=== PATIENT | female | born 1945 | race Caucasian/White ===

== ENCOUNTER 2018-10-19 07:04 | Inpatient (IN) | payer BC, MEDICARE ==
[2018-10-16 18:30] VITALS: BMI 26.2
[2018-10-19] VITALS (25 sets, daily range): BP systolic 96–141; BP diastolic 53–66; PULSE 60–83; RESP 14–31; Ht 157.5 cm; Wt 62.2 kg
[~2018-10-19] VITALS: Ht 157.5 cm; Wt 62.2 kg
--- NOTE | 2018-10-19 05:53 | HPN ---
Date/Time of Note Date/Time of Note DATE: 10/19/18 TIME: 05:53 Interval H&P Admission Note Pt. seen H&P reviewed: No system changes MAXIMINO FIGUEROA MD Oct 19, 2018 05:53
--- NOTE | 2018-10-19 05:57 | OPR ---
Date/Time of Note Date/Time of Note DATE: 10/19/18 TIME: 05:54 Operative Report Procedure Date: Oct 19, 2018 Preoperative Diagnosis Failed right total shoulder replacement Postoperative Diagnosis 1. Failed right total shoulder replacement 2. Right shoulder acromioclavicular joint arthritis 3. Massive, unrepairable rotator cuff tear Operation/Procedure Performed 1. Revision of right total shoulder to reverse total shoulder replacement 2. Right open distal clavicular excision 3. Right shoulder injection of PRP solution Surgeon see signature line Production Consultant Cheko Lundberg PA-C Anesthesia Type: general Estimated Blood Loss: 100 - 150 ml's Transfusion none Specimen None Grafts/Implants See operative note Complications none Pt Condition Post Procedure: stable Disposition: PACU Procedure Description OUTSIDE CONTRACTOR SALES SURGEON: Cheko Lundberg PA-C was asked to be present for this case at my request. Assistance was necessary as a result of the highly technical nature of this operation. When performing an open total shoulder replacement, it is critical to have a trained insurance administrative assistant who is an expert in handling the extremity and assisting the surgeon in tasks such as manipulation of the arm, protection of the neurovascular structures and positioning the implants. This assistance cannot be performed by a tractor trailer technician, as it is considered an integral part of the procedure and the insurance administrative assistant should be compensated for his time. PROCEDURE IN DETAIL: Following the administration of general anesthesia supplemented with a peripheral nerve block for postoperative pain control, the patient was examined under anesthesia. Examination of the right shoulder revealed that the humeral head was sitting posteriorly dislocated. There was moderate to severe crepitus with motion. The right forearm was prepped and 60 cc of blood were drawn using a 60 cc syringe coated with anticoagulant. The blood was harvested from the patient and given to the promotional representative who prepared PRP concentrate. The patient was then placed in the beach chair position. Sterile prep and drape was then undertaken. An extended deltopectoral incision was then created. The superior surface was then identified and the acromioclavicular joint was noted to have very significant palpable osteophytes. Capsulotomy was then made in a medial lateral direction exposing the distal clavicle. Severe arthritic changes were noted. The clavicle was then skeletonized for a distance of 10 mm and an osteotome was used to resect the lateral 10 mm. A good decompression of the AC joint was confirmed. The AC joint capsule was then closed using interrupted #2 sutures with a watertight closure. The deltopectoral interval was then exposed and the conjoined tendon was identified and retracted medially. The humeral component was then noted to be in the subdeltoid plane the subdeltoid plane was then elevated. Severe synovitis was noted with the humeral head being superiorly and posteriorly displaced. The humeral component was then removed with osteotomes and mallet. The canal was intact distally. The tuberosities were slightly comminuted. The glenoid component was seen to be completely displaced and this was removed atraumatically. There was a central cavitary defect in the glenoid and this was prepared with bony putty in order to augment the area. The central canal of the glenoid was then entered and prepared for a Trampolineuy baseplate with a 20 mm peg was then fashioned. The baseplate was then applied with four peripheral screws and solid fixation. A 38 mm glenosphere, with 4 mm offset was then applied, with solid fixation. The humerus was then reamed and prepared for a 12 mm humeral component with a standard metaphyseal component. The joint was irrigated and the medullary canal infiltrated with the PRP solution that was prepared previously. The actual components were implanted with solid fixation with a 3 mm liner. The arm was taken through full range of motion with no evident instability. The joint was then thoroughly irrigated, the deep tissues were approximated u sing #1 suture followed by closure of the deep layer using 2-0 Monocryl. The skin was closed using 4-0 Monocryl suture, and a Prenio dressing. An Ultrasling was then applied. The patient was awakened and transported to the recovery room in stable conditi on. Estimated blood loss for this procedure was 150 cc. Radiographs will be obtained in the recovery room. MAXIMINO FIGUEROA MD Oct 19, 2018 05:57
[~2018-10-19 07:04] MED LIST: BUPIVACAINE 0.5% (SDV) 30 ML, morphine SULFATE (PF) 8 MG, EPINEPHrine 0.3 MG, KETOROLAC... IRR SCH; DEXAMETHASONE 1 MG TAB PO ONE; GABAPENTIN 300 MG CAP PO ONE; PHENYLephrine (100 MCG/ML) 10ML SYG ONE; TRANEXAMIC ACID 1GM/100ML(PMX) 100 ML IVPB ONE; VANCOMYCIN 1 GM (PMX) 250 ML IVPB ONE
[2018-10-19] MEDS ORDERED: BUPIVACAINE 0.5%/EPI (SDV) 30 ML INJ ONE (07:33)
[2018-10-19] MEDS ORDERED: POLYMYXIN/BACITRACIN 1L IRRIG ONE (07:33)
[2018-10-19] MEDS ORDERED: THROMBIN (BOVINE) 5,000 UNIT VIAL TP ONE (07:34)
[2018-10-19] MEDS ORDERED: CA CHLORIDE 10% 10 ML SYRINGE ONE (07:34)
[2018-10-19] MEDS ORDERED: DULO60CA59 PO (07:54)
[2018-10-19] MEDS ORDERED: LAMO200T2 PO (07:55)
[2018-10-19] MEDS ORDERED: ZOLP12.54 PO (07:56)
[2018-10-19] MEDS ORDERED: TRA100 PO (07:56)
[2018-10-19] MEDS ORDERED: LEVO25TA50 PO (07:57)
[2018-10-19] MEDS ORDERED: DOXY100T20 PO (07:57)
[2018-10-19] MEDS ORDERED: MIRA50TA PO (07:57)
[2018-10-19] MEDS ORDERED: TRANEXAMIC ACID 1GM/100ML(PMX) 200 ML ONE (08:04)
--- NOTE | 2018-10-19 08:28 | PREAC ---
Date/Time of Note Date/Time of Note DATE: 10/19/18 TIME: 08:26 Anesthesia Eval and Record Evaluation Time Pre-Procedure Interview DATE: 10/19/18 TIME: 08:26 Age 73 Sex female NPO: 8 hrs Preoperative diagnosis Failed right total shoulder replacement Planned procedure Revision of right total shoulder to reverse total shoulder replacement Past Medical History Past Medical History: Includes Endo: Hypothyroid Psych: Bipolar Surgery & Anesthesia Issues No known issue Meds Anticoagulation: No Beta Noel within 24 hr: No Reason Beta Noel not given: Pt. not on B-Noel Reported Medications Doxycycline Hyclate* (Doxycycline Hyclate*) 100 Mg Tablet.dr, 100 MG PO BID, TAB 10/19/18 Levothyroxine Sodium* (Levoxyl*) 25 Mcg Tablet, 25 MCG PO BEFORE BREAKFAST, #30 TAB 10/19/18 Mirabegron (Myrbetriq) 50 Mg Tab.er.24h, 50 MG PO DAILY, TAB 10/19/18 Trazodone Hcl* (Trazodone Hcl*) 100 Mg Tablet, 100 MG PO QHS, #30 TAB 10/19/18 Zolpidem Tartrate* (Zolpidem Tartrate* ER) 12.5 Mg Tab.mphase, 12.5 MG PO HS PRN for INSOMNIA, #30 TAB.SA 10/19/18 Lamotrigine* (Lamotrigine*) 200 Mg Tablet, 200 MG PO QPM, TAB 10/19/18 Duloxetine Hcl* (Duloxetine Hcl*) 60 Mg Capsule.dr, 120 MG PO QPM, #30 CAP 10/19/18 Current Medications Bupivacaine HCl/ Morphine Sulfate/ Epinephrine/ Ketorolac Tromethamine/ Clonidine/Sodium Chloride/ Vancomycin HCl INTRA-OP IRR ; Start 10/19/18 at 05:30 Meds reviewed: Yes Allergies Coded Allergies: Penicillins (Verified Allergy, Intermediate, ITCHING , 10/19/18) acetaminophen (Verified Allergy, Intermediate, ITCHING , 10/19/18) cephalexin (Verified Allergy, Intermediate, ITCHING , 10/19/18) hydrocodone (Verified Allergy, Intermediate, ITCHING , 10/19/18) adhesive tape (Verified Allergy, Unknown, 10/19/18) Allergies Reviewed: Yes Labs/Studies Labs Reviewed: Reviewed by anesthesiologist test: N/A Pre-procedure Exam Airway: Adequate mouth opening, Adequate thyromental dist Mallampati: Mallampati II Teeth: Normal Lung: Normal Heart: Normal ASA Physical Status ASA physical status: 2 Emergency: None Planned Anesthetic General/MAC: ETT Nerve block: Brachial plexus (right) Planned Pain Management Single shot nerve block, Parenteral pain med Pre-operative Attestations Prior to commencing anesthesia and surgery, the patient was re-evaluated, there was verification of: *The patient's identity *The results of appropriate recent lab work and preoperative vital signs *The above evaluation not changing prior to induction *Anesthetic plan, risk benefits, alternative and complications discussed with patient/family; questions answered; patient/family understands, accepts and wishes to proceed. SCAR LEI MD Oct 19, 2018 08:28
[2018-10-19] MEDS ORDERED: LIDOCAINE 2% (SDV) 5 ML INJ ONE (08:30)
[2018-10-19] MEDS ORDERED: FENTAnyl 50 MCG/ML VIAL ONE (08:30)
[2018-10-19] MEDS ORDERED: SUCCINYLCHOLINE CHLORIDE 100 MG/5 ML SYG IV ONE (08:30)
[2018-10-19] MEDS ORDERED: ROCURONIUM 50 MG INJ ONE (08:30)
[2018-10-19] MEDS ORDERED: PROPOFOL 20 ML ONE (08:30)
[2018-10-19] MEDS ORDERED: ROPIVACAINE 0.5 % 30 ML VIAL ONE (08:30)
[2018-10-19] MEDS ORDERED: MIDAZOLAM 1 MG/ML 2 ML INJ ONE (08:30)
[2018-10-19] MEDS ORDERED: LACTATED RINGER'S 1,000 ML IV SCH (09:00)
[2018-10-19] MEDS ORDERED: DEXAMETHASONE 4 MG/ML 5 ML INJ ONE (09:32)
[2018-10-19] MEDS ORDERED: ONDANSETRON 4 MG INJ ONE (09:32)
[2018-10-19] MEDS ORDERED: FAMOTIDINE 20 MG INJ ONE (09:33)
[2018-10-19] MEDS ORDERED: FENTAnyl 50 MCG/ML VIAL IV PRN (10:30)
[2018-10-19] MEDS ORDERED: ONDANSETRON 4 MG INJ IV PRN ×2 (10:30→11:00)
[2018-10-19] MEDS ORDERED: DIPHENHYDRAMINE 50 MG INJ IV PRN ×2 (10:30→11:00)
[2018-10-19] MEDS ORDERED: HYDROmorphONE 1 MG/5 ML IV SYRINGE IV PRN ×3 (10:30)
[2018-10-19] MEDS ORDERED: MEPERIDINE 25 MG INJ IV PRN (10:30)
[2018-10-19] MEDS ORDERED: PROCHLORPERAZINE 10 MG INJ IV PRN (10:30)
[2018-10-19] MEDS ORDERED: LOPERAMIDE 2 MG CAP PO PRN (11:00)
[2018-10-19] MEDS ORDERED: NACL 0.9% 3 ML SYG IV SCH (11:00)
[2018-10-19] MEDS ORDERED: oxyCODONE 5 MG TAB PO PRN ×3 (11:00)
[2018-10-19] MEDS ORDERED: HYDROmorphONE 1 MG/ML SYG IV PRN (11:00)
[2018-10-19] MEDS ORDERED: TRANEXAMIC ACID 1GM/100ML(PMX) 100 ML IVPB ONE (11:00)
[2018-10-19] MEDS ORDERED: MAGNESIUM HYDROXIDE 30ML CUP PO PRN (11:00)
[2018-10-19] MEDS ORDERED: KETOROLAC 15 MG INJ IV PRN (11:00)
[2018-10-19] MEDS ORDERED: ZOLPIDEM 5 MG TAB PO PRN (11:00)
--- NOTE | 2018-10-19 11:07 | PAC ---
Date/Time of Note Date/Time of Note DATE: 10/19/18 TIME: 11:06 Post-Anesthesia Notes Post-Anesthesia Note Last documented vital signs Vital Signs Date Temp Pulse Resp B/P (MAP) Pulse Ox O2 O2 Flow FiO2 Time Delivery Rate 10/19/18 96.9 70 16 120/64 97 Room Air 08:39 (82) Activity: WNL Respiratory function: WNL Cardiovascular function: WNL Mental status: Baseline Pain reasonably controlled: Yes Hydration appropriate: Yes Nausea/Vomiting absent: Yes Comments Bp: 139/68 HR: 84 RR: 15 T: 98.2 SaO2; 100% SCAR LEI MD Oct 19, 2018 11:07
[2018-10-19] MEDS: DEXAMETHASONE 2 MG TAB PO SCH ×3 (12:05→23:06)
[2018-10-19] MEDS: ACETAMINOPHEN 500 MG TAB PO SCH ×3 (12:05→23:06)
[2018-10-19] MEDS ORDERED: EPHEDrine 25 MG/5 ML SYG ONE (12:09)
[2018-10-19] MEDS ORDERED: NEOSTIGMINE 3 MG/3 ML SYRINGE ONE ×2 (12:09)
[2018-10-19] MEDS ORDERED: GLYCOPYRROLATE 0.4 MG INJ ONE (12:09)
--- NOTE | 2018-10-19 14:21 | PDOCDIS ---
Discharge Instructions DIAGNOSIS Discharge Diagnosis Rotator cuff tear arthropathy CONDITION [id number] Patient Condition: [id number] Good HOME CARE INSTRUCTIONS: [id number] Diet Instructions: [id number] Regular ACTIVITY: [id number] Activity Restrictions: [id number] Slowly Increase Activity Keep Limb Elevated [id number] Bathing Restrictions: [id number] Shower FOLLOW UP/APPOINTMENTS Follow-up Plan 2 weeks in the office SCHOOL/WORK RELEASE May return to School/Work with: With Restrictions School/Work Release Comment: 5 pound tabletop activity usage for 6 weeks MAXIMINO FIGUEROA MD Oct 19, 2018 14:21
[2018-10-19] MEDS ORDERED: VANCOMYCIN 500 MG (PMX) 100 ML IVPB SCH (18:00)
[2018-10-19] MEDS: SENNA/DOCUSATE NA (8.6MG/50MG) TAB PO SCH (20:15)
[2018-10-19] MEDS: VANCOMYCIN 500 MG (PMX) 100 ML IVPB SCH (20:28)
[2018-10-19] MEDS ORDERED: GABAPENTIN 300 MG CAP PO SCH (21:00)
[2018-10-19] MEDS ORDERED: DULOXETINE 30 MG CAP DR PO SCH (21:00)
[2018-10-19] MEDS ORDERED: traZODone 100 MG TAB PO SCH (21:00)
[2018-10-19] MEDS ORDERED: LAMOTRIGINE 100 MG TAB PO SCH (21:00)
[2018-10-20] MEDS: DEXAMETHASONE 2 MG TAB PO SCH (05:09)
[2018-10-20] MEDS: ACETAMINOPHEN 500 MG TAB PO SCH ×2 (05:10→11:50)
--- NOTE | 2018-10-20 06:02 | DS ---
Date/Time of Note Date/Time of Note DATE: 10/20/18 TIME: 06:02 Discharge Summary Admission/Discharge Info Admit Date/Time Oct 19, 2018 at 07:04 Discharge Date/Time 10/20/2018 Discharge Diagnosis Rotator cuff tear arthropathy Patient Condition: Good Hospital Course Admitted and underwent uncomplicated procedure. Discharged home after PT. Home Meds Reported Medications Doxycycline Hyclate* (Doxycycline Hyclate*) 100 Mg Tablet.dr, 100 MG PO BID, TAB 10/19/18 Levothyroxine Sodium* (Levoxyl*) 25 Mcg Tablet, 25 MCG PO BEFORE BREAKFAST, #30 TAB 10/19/18 Mirabegron (Myrbetriq) 50 Mg Tab.er.24h, 50 MG PO DAILY, TAB 10/19/18 Trazodone Hcl* (Trazodone Hcl*) 100 Mg Tablet, 100 MG PO QHS, #30 TAB 10/19/18 Zolpidem Tartrate* (Zolpidem Tartrate* ER) 12.5 Mg Tab.mphase, 12.5 MG PO HS PRN for INSOMNIA, #30 TAB.SA 10/19/18 Lamotrigine* (Lamotrigine*) 200 Mg Tablet, 200 MG PO QPM, TAB 10/19/18 Duloxetine Hcl* (Duloxetine Hcl*) 60 Mg Capsule.dr, 120 MG PO QPM, #30 CAP 10/19/18 Follow-up Plan 2 weeks in the office Primary Care Provider Not On Staff Doctor MAXIMINO FIGUEROA MD Oct 20, 2018 06:02
--- NOTE | 2018-10-20 06:02 | PN ---
Date/Time of Note Date/Time of Note DATE: 10/20/18 TIME: 06:01 Subjective Awake and alert with no complaints. Objective Vitals Vital Signs Date Temp Pulse Resp B/P (MAP) Pulse Ox O2 O2 Flow FiO2 Time Delivery Rate 10/19/18 98.3 60 20 115/58 96 Room Air 23:33 (77) 10/19/18 2.0 11:13 Intake and Output 10/19/18 10/19/18 10/20/18 1515:00 23:00 07:00 IntakeIntake Total 800 ml 240 ml 300 ml OutputOutput Total 50 ml BalanceBalance 750 ml 240 ml 300 ml Wound is clean and dry. She is neurologically intact. There are no signs of DVT. Medications Medications Current Medications Lactated Ringer's 1,000 ml @ 0 mls/hr Q0M IV ; Start 10/19/18 at 09:00 Duloxetine HCl (Cymbalta) 120 mg QPM PO Last administered on 10/19/18at 20:15; Admin Dose 120 MG; Start 10/19/18 at 21:00 Lamotrigine (Lamictal) 200 mg QPM PO Last administered on 10/19/18at 20:17; Admin Dose 200 MG; Start 10/19/18 at 21:00 Levothyroxine Sodium (Synthroid) 25 mcg BEFORE BREAKFAST PO ; Start 10/20/18 at 07:00 Trazodone HCl (Desyrel) 100 mg QHS PO Last administered on 10/19/18at 20:17; A dmin Dose 100 MG; Start 10/19/18 at 21:00 Miscellaneous Information 50 mg DAILY PO ; Start 10/20/18 at 09:00; Status UNV Senna/Docusate Sodium (Senokot-S) 1 tab BID PO Last administered on 10/19/18at 20:15; Admin Dose 1 TAB; Start 10/19/18 at 21:00 Simethicone (Mylicon) 80 mg TID PRN PO .GAS; Start 10/19/18 at 11:00 Magnesium Hydroxide (Milk Of Mag) 30 ml BID PRN PO .CONSTIPATION; Start 10/19/18 at 11:00 Loperamide HCl (Imodium Cap) 2 mg Q6H PRN PO .DIARRHEA; Start 10/19/18 at 11:00 Dexamethasone (Decadron) 2 mg Q6 PO Last administered on 10/20/18at 05:09; Admin Dose 2 MG; Start 10/19/18 at 12:00; Stop 10/20/18 at 06:01 Gabapentin (Neurontin) 300 mg HS PO Last administered on 10/19/18at 20:16; Admin Dose 300 MG; Start 10/19/18 at 21:00 Acetaminophen (Tylenol Tab) 500 mg Q6 PO Last administered on 10/20/18at 05:10; Admin Dose 500 MG; Start 10/19/18 at 12:00 Oxycodone HCl (Roxicodone) 15 mg Q4H PRN PO .PAIN; Start 10/19/18 at 11:00 Oxycodone HCl (Roxicodone) 10 mg Q4H PRN PO .PAIN; Start 10/19/18 at 11:00 Oxycodone HCl (Roxicodone) 5 mg Q4H PRN PO .PAIN; Start 10/19/18 at 11:00 Hydromorphone HCl (Dilaudid) 1 mg Q4H PRN IV .BREAKTHROUGH PAIN; Start 10/19/18 at 11:00 Ketorolac Tromethamine (Toradol) 15 mg Q6H PRN IV .PAIN Last administered on 10/20/18at 04:49; Admin Dose 15 MG; Start 10/19/18 at 11:00 Ondansetron HCl (Zofran Inj) 4 mg Q6H PRN IV NAUSEA/VOMITING; Start 10/19/18 at 11:00 Diphenhydramine HCl (Benadryl) 25 mg Q6H PRN IV .PRURITUS; Start 10/19/18 at 11:00 Zolpidem Tartrate (Ambien) 10 mg HS PRN PO .INSOMNIA; Start 10/19/18 at 11:00 IV Flush (NS 3 ml) 3 ml per protocol IV ; Start 10/19/18 at 11:00 Vancomycin HCl 100 ml @ 100 mls/hr Q12H IVPB Last administered on 10/19/18at 20:28; Admin Dose 100 MLS/HR; Start 10/19/18 at 20:00; Stop 10/20/18 at 08:59 VTE Prophylaxis Risk score (from Ns)>0 risk: 9 SCD applied (from Nsg): Yes Lines/Catheters IV Catheter Type: Saline Lock Villatoro in Place: No Assessment/Plan Assessment/Plan Assessment: Status post total shoulder replacement Plan: Begin PT this morning then discharge home after MAXIMINO FIGUEROA MD Oct 20, 2018 06:02
[2018-10-20] MEDS ORDERED: LEVOTHYROXINE 25 MCG TAB PO SCH (07:00)
[2018-10-20 07:15] VITALS: BP 145/70; PULSE 74; RESP 18
[2018-10-20] MEDS: SENNA/DOCUSATE NA (8.6MG/50MG) TAB PO SCH (07:54)
[2018-10-20] MEDS: VANCOMYCIN 500 MG (PMX) 100 ML IVPB SCH (07:57)
[2018-10-20] MEDS ORDERED: NON-FORMULARY/PATIENT OWN MED (Mirabegron (Myrbetriq) 50 MG) PO SCH (09:00)
[2018-10-20] MEDS ORDERED: [UNRECOGNIZED DRUG - REMARK] XX SCH (13:00)
== END 2018-10-20 13:15 | disposition home or self-care (01) | DRG 483 ==
LOC: REC 07:04 → MS1 11:56
PROVIDERS: ADMIT Orthopaedic Surgery; ATTEND Orthopaedic Surgery
PROC: 0RPJ0JZ Removal of Synthetic Substitute from Right Shoulder Joint, Open Approach (ICD-10-PCS; 2018-10-19)
PROC: 0PB90ZZ Excision of Right Clavicle, Open Approach (ICD-10-PCS; 2018-10-19)
PROC: 0RRJ00Z Replacement of Right Shoulder Joint with Reverse Ball and Socket Synthetic Substitute, Open Approach (ICD-10-PCS; principal; 2018-10-19 08:30)
DX: T84.84XA Pain due to internal orthopedic prosthetic devices, implants and grafts, initial encounter (principal); Z96.611 Presence of right artificial shoulder joint; M75.101 Unspecified rotator cuff tear or rupture of right shoulder, not specified as traumatic
CPT/HCPCS: 86999; 88300; 97161; C1776; J0171; J0735; J1100; J1885; J2250; J2274; J2370; J2405; J2710; J2795; J3010; J3370